=== PATIENT | female | born 1980 | race African-American/Black ===

== ENCOUNTER 2020-11-27 | Emergency (ER) | payer OTHER ==
[~2020-11-27] MED LIST: FLEXERIL PO; NAPROSYN500 MG PO
[2020-11-27] MEDS ORDERED: NAPROXEN375 MG PO (18:07)
[2020-11-27] MEDS ORDERED: MEDDOSEPAK PO (18:07)
[2020-11-27] MEDS ORDERED: CYCLOBENZAPRINE10 MG PO (18:07)
[2020-11-27] MEDS ORDERED: NO HOME MED (18:33)
[2021-07-08] MEDS ORDERED: HCTZ (11:40)
[2021-07-08] MEDS ORDERED: LIPITOR20 M1 PO (11:41)
[2021-07-08] MEDS ORDERED: LOSARTAN POTASS25 MG PO (11:41)
[2021-07-08] MEDS ORDERED: HYDROCHLOROT25 MG PO (11:42)
== END 2020-11-27 18:35 | disposition home or self-care (01) ==
DX: M54.42 Lumbago with sciatica, left side (principal); I10 Essential (primary) hypertension; E78.5 Hyperlipidemia, unspecified

== ENCOUNTER 2021-07-29 06:57 | Day surgery (SDC) | payer OTHER ==
[~2021-07-29] VITALS: Ht 165.1 cm; Wt 105.2 kg
[~2021-07-29 06:57] MED LIST changes: +CYCLOBENZAPRINE10 MG PO; +HCTZ; +HYDROCHLOROT25 MG PO; +LIPITOR20 M1 PO; +LOSARTAN POTASS25 MG PO; +MEDDOSEPAK PO; +NAPROXEN375 MG PO; +NO HOME MED
[2021-07-29 08:46] VITALS: BP 147/55
== END 2021-07-29 07:05 | disposition home or self-care (01) ==
LOC: ENDO 06:57 → ORM 08:00 → ENDO 08:00 → ORM 08:45
PROVIDERS: ATTEND Surgery
DX: Z12.11 Encounter for screening for malignant neoplasm of colon (principal); I10 Essential (primary) hypertension; Z80.0 Family history of malignant neoplasm of digestive organs; Z83.71 Family history of colonic polyps